=== PATIENT | male | born 1960 | race Caucasian/White ===

== ENCOUNTER 2019-03-03 13:10 | Outpatient (CLI) | payer BC, SELFPAY ==
--- NOTE | 2019-03-03 13:49 | XR_ITS ---
WS: [id number] PARANASAL SINUSES TECHNIQUE: Cisneros, Quintero and lateral views HISTORY: CHRONIC SINUS CONGESTION COMPARISON: None available. Paranasal sinuses are well aerated. No air-fluid levels. No osseous destruction. Visualized portions of the adjacent bones are normal. No deviation of the nasal septum. NOTE: Report was unsigned for reason: Ordering provider was edited. Original Signature date and time was: 03/03/19 1433 [facility] XR/XR sinus min 3V* [id number] IMPRESSION: Normal paranasal sinus films.
== END 2019-03-03 13:11 | disposition home or self-care (01) ==
PROVIDERS: Family Provider Physician Assistant
DX: R09.81 Nasal congestion (principal)
CPT/HCPCS: 70220

== ENCOUNTER 2023-07-30 10:17 | Emergency (ER) | payer SELFPAY ==
[2023-07-30 10:22] VITALS: BP 136/101; PULSE 97; RESP 20; TEMP 36.4; O2SAT 96
--- NOTE | 2023-07-30 10:30 | XR_ITS ---
WS: [id number] Exam: XR chest 1V portable [id number] Date/Time of Exam: 07/30/2023 10:30 AM Reason For Exam: dyspnea/cough Comparison 02/14/2018. The lungs are clear and fully expanded. Cardiomediastinal silhouette is unremarkable for technique. N o pleural effusions. Advanced DJD of both shoulders. XR/XR chest 1V portable [id number] IMPRESSION: 1. No acute cardiopulmonary finding.
--- NOTE | 2023-07-30 10:31 | ECG_ITS ---
[facility] Test Date: 2023-07-30 Pat Name: Lamont Fernando Department: Room: Gender: Male Nursing Assoc: : 1960 Requested By: Quique Lee Order Number: [id number] Esme MD: Parish Coronado M.D. Measurements Intervals [place] Rate: 101 P: 60 UT: 161 QRS: 231 QRSD: 90 T: 91 QT: 352 QTc: 456 Interpretive Statements SINUS TACHYCARDIA POSSIBLE RIGHT ATRIAL ENLARGEMENT [0.25mV P-WAVE] LEFT ATRIAL ENLARGEMENT [-0.15mV P-WAVE IN V1/V2] LEFT POSTERIOR FASCICULAR BLOCK [QRS AXIS > 109, INFERIOR Q] Compared to ECG 02/14/2018 18:33:12 Left posterior fascicular block now present Sinus rhythm no longer present Sinus arrhythmia no longer present Electronically Signed On 07-30-2023 12:32:11 CDT by Parish Coronado M.D. [id number] f
--- NOTE | 2023-07-30 10:38 | ED_ITS ---
HPI - SOB/Dyspnea 2 General: Chief Complaint: Shortness of Breath/Dyspnea Stated Complaint: sob Time Seen by Provider: 07/30/23 10:20 Source: patient Mode of arrival: ambulatory History of Present Illness: HPI Narrative: 62-year-old male who [facility] with complaint of 1 week history of shortness of breath with a nonproductive cough. He denies any hematemesis. He denies any fever sweats or chills he has been coughing more. He has a history of COPD he is not on oxygen he does use Symbicort has not used any albuterol. MD elicited complaint: shortness of breath and cough Pertinent past history: COPD Onset (ago): week(s) (1) Exacerbating factors: exertion and coughing Relieving factors: rest and bronchodilators Known history of: COPD Associated symptoms: Deny abdominal pain, chest congestion, chest pain, cough, diaphoresis, dizziness, extremity pain, fever(s), hemoptysis, lightheadedness, myalgias, nausea, orthopnea, palpitations, paresthesias, polydipsia, polyuria, rash, sense of impending doom, syncope or vomiting Treatment prior to arrival: none Review of Systems 2 Const: Denies: fever(s), chills or diaphoresis Card: Denies: chest pain, palpitations, lightheadedness, syncope or orthopnea Resp: Denies: dyspnea, hemoptysis or chest congestion GI: Denies: abdominal pain, nausea or vomiting : Denies: dysuria, urinary frequency or urinary urgency Musc: Denies: neck pain, back pain or extremity pain Skin/Breast: Denies: rash Neuro: Denies: dizziness Endo: Denies: polyuria or polydipsia PFSH ED 2 PFSH: Medical History (Updated 07/30/23 @ 13:30 by Quique Ferguson DO) COPD (chronic obstructive pulmonary disease) Depression Surgical History (Updated 07/30/23 @ 10:48 by Quique Ferguson DO) H/O spinal fusion Surgery Oct 09 2021 Social History Smoking and tobacco/nicotine status: current every day tobacco/nicotine user Physical Exam 2 Const: GENERAL APPEARANCE: cooperative and comfortable O RIENTATION/CONSCIOUSNESS: Yes awake, Yes oriented to person, Yes oriented to place and Yes oriented to time HENMT: COMMON NORMALS: normocephalic, atraumatic and hearing grossly normal bilaterally HEAD & SCALP: normocephalic and atraumatic Resp: COMMON NORMALS: normal respiratory effort, No retractions and No use of accessory muscles AUSCULTATION: wheezes Cardio: COMMON NORMALS: regular rate, regular rhythm and No murmurs present (Cardio) RATE: regular rate RHYTHM: regular rhythm GI: COMMON NORMALS: Soft to palpation and No hepatosplenomegaly present A USCULTATION: Yes normoactive bowel sounds PALPATION: Yes Soft to palpation, No Tenderness to palpation present (GI), No Guarding due to palpation present (GI) and Yes No hepatosplenomegaly present Extremity: COMMON NORMALS: normal to inspection, capillary refill normal, no clubbing, cyanosis or edema, no calf tenderness and no pedal edema Neuro: SENSORIUM/ORIENTATION: Yes oriented to person, Yes oriented to place and Yes oriented to time Skin: COMMON NORMALS: no rashes or lesions noted GENERAL SKIN EXAM: no rashes or lesions noted Course 2 Vital Signs: Vital signs: Vital Signs Temperature 97.5 F L 07/30/23 10:22 Pulse Rate 101 H 07/30/23 13:48 Respiratory Rate 18 07/30/23 10:45 Blood Pressure 127/98 07/30/23 13:48 Pulse Oximetry 94 07/30/23 13:48 Oxygen Delivery Me thod Room Air 07/30/23 12:03 MDM - SOB/Dyspnea Medical Decision Making EKG and cardiac enzymes negative. Chest x-ray unremarkable suspect he has exacerbation of COPD will treat with doxycycline steroid taper albuterol. Glucose was markedly elevated as well it did respond to insulin. Encourage patient to follow-up with his primary care doctor to discuss his glycemic control. Medical Records I reviewed the patient's medical records. Lab Data I reviewed the patient's lab results. 07/30/23 10:33 07/30/23 10:33 Labs/Radiology: Radiology Impressions Chest X-Ray 07/30/23 10:30 IMPRESSION: 1. No acute cardiopulmonary finding. Laboratory Results WBC 7.68 10^3/uL (3.29-11.43) 07/30/23 10:33 RBC 6.46 10^6/uL (3.85-5.65) H 07/30/23 10:33 Hgb 17.10 g/dL (11.27-16.99) H 07/30/23 10:33 Hct 52.5 % (37-53) 07/30/23 10:33 MCV 81.3 fl (82-101) L 07/30/23 10:33 MCH 26.5 pg (27-33) L 07/30/23 10:33 MCHC 32.6 g/dL (30-55) 07/30/23 10:33 RDW 13.9 % (12.1-15.1) 07/30/23 10:33 Plt Count 285 10^3/cmm (157-399) 07/30/23 10:33 MPV 11.5 fL (7.4-10.4) H 07/30/23 10:33 Neut % (Auto) 80.3 % 07/30/23 10:33 Lymph % (Auto) 10.8 % 07/30/23 10:33 [place] % (Auto) 5.3 % 07/30/23 10:33 Eos % (Auto) 2.3 % 07/30/23 10:33 Baso % (Auto) 1.0 % 07/30/23 10:33 Neut # (Auto) 6.16 10^3/uL (1.8-7.7) 07/30/23 10:33 Lymph # (Auto) 0.8 10^3/uL (0.8-4.8) 07/30/23 10:33 [place] # (Auto) 0.4 10^3/uL (0.2-0.9) 07/30/23 10:33 Eos # (Auto) 0.2 10^3/uL (0.0-0.8) 07/30/23 10:33 Baso # (Auto) 0.1 10^3/uL (0.0-0.1) 07/30/23 10:33 Nucleated RBC % (auto) 0 % 07/30/23 10:33 Nucleated RBCs # 0.0 /100WBC 07/30/23 10:33 Specimen Type Arterial 07/30/23 10:29 Sample Site Radial, left 07/30/23 10:29 ABG pH 7.43 (7.35-7.45) 07/30/23 10:29 ABG pCO2 33.3 mmHg (35-45) L 07/30/23 10:29 ABG pO2 70.7 mmHg (80.0-100.0) L 07/30/23 10:29 ABG PO2/FiO2 Ratio 0 07/30/23 10:29 ABG HCO3 22.0 mmol/L (22-26) 07/30/23 10:29 ABG O2 Saturation 94.9 07/30/23 10:29 ABG Base Excess -1.6 mmol/L (-2.0-2.0) 07/30/23 10:29 Daniele Test Pos 07/30/23 10:29 A-a O2 Gradient 4.8 mmHg (5-10) L 07/30/23 10:29 Hematocrit 46.7 % (42-52) 07/30/23 10: Hgb O2 Saturation 92.4 % (95-100) L 07/30/23 10:29 Carboxyhemoglobin 2.1 %THgb (0.4-20.1) 07/30/23 10:29 Methemoglobin 0.4 % (0.4-1.5) 07/30/23 10:29 Total Hemoglobin 15.2 g/dL (14-18) 07/30/23 10:29 Sodium 133.0 mmol/L (131-143) 07/30/23 10:29 Potassium 3.8 mmol/L (3.5-5.0) 07/30/23 10:29 Glucose 544.0 mg/dL (70-115) H 07/30/23 10:29 Ionized Calcium 1.1 mmol/L (1.1-1.4) 07/30/23 10:29 O2 Delivery Device Room air 07/30/23 10:29 FiO2 21.0 % 07/30/23 10:29 Yolk Spray Drier ID Walci 07/30/23 10:29 Sodium 131 mmol/L (136-145) L 07/30/23 10:33 Potassium 4.1 mmol/L (3.5-5.1) 07/30/23 10:33 Chloride 92 mmol/L (98-107) L 07/30/23 10:33 Carbon Dioxide 23 mmol/L (22-29) 07/30/23 10:33 Anion Gap 20.1 (5-19) H 07/30/23 10:33 BUN 8 mg/dL (8-23) 07/30/23 10:33 Creatinine 0.8 mg/dL (0.7-1.2) 07/30/23 10:33 GFR Calculation 98.3 mL/min (90-130) 07/30/23 10:33 Glucose 572 mg/dL (65-115) H* 07/30/23 10:33 POC Glucose 292 mg/dL (70-110) H 07/30/23 13:00 Calculated Osmolality 297 mOsm/kg (285-295) H 07/30/23 10:33 Calcium 9.3 mg/dL (8.5-10.5) 07/30/23 10:33 Total Bilirubin 0.5 mg/dL (0.15-1.2) 07/30/23 10:33 AST 22 U/L (0-40) 07/30/23 10:33 ALT 30 U/L (0-41) 07/30/23 10:33 Alkaline Phosphatase 152 U/L (40-130) H 07/30/23 10:33 Troponin T Baseline 49 ng/L (0-15) H 07/30/23 10:33 Troponin T 120 Minute 37.60 ng/L (0-15) H 07/30/23 12:14 Delta Troponin T -11.40 ABS# (0-10) L 07/30/23 12:14 Total Protein 7.3 g/dL (6.6-8.7) 07/30/23 10:33 Albumin 4.3 g/dL (3.5-5.2) 07/30/23 10:33 Globulin 3.0 g/dL (1.3-4.6) 07/30/23 10:33 Urine Color Yellow (Yellow) 07/30/23 12:02 Urine Appearance Clear (CLEAR) 07/30/23 12:02 Urine pH 6 (5-7) 07/30/23 12:02 Ur Specific [place] 1.015 (1.005-1.030) 07/30/23 12:02 Urine Protein 3+ (Negative) H 07/30/23 12:02 Urine Glucose (UA) 4+ (Normal) H 07/30/23 12:02 Urine Ketones Negative (Negative) 07/30/23 12:02 Urine Blood 2+ (Negative) H 07/30/23 12:02 Urine Nitrate Negative (Negative) 07/30/23 12:02 Urine Bilirubin Neg (Negative) 07/30/23 12:02 Urine Urobilinogen Neg mg/dL (Negative) 07/30/23 12:02 Ur Leukocyte Esterase Negative (Negative) 07/30/23 12:02 Urine RBC 0-4 /hpf (0-2) H 07/30/23 12:02 Urine WBC 0-4 /hpf (0-5) H 07/30/23 12:02 Ur Squamous Epith Cells Rare /hpf (0-5) 07/30/23 12:02 Amorphous Sediment Not Reportable 07/30/23 12:02 Urine Bacteria Trace /hpf (NONE) 07/30/23 12:02 Serum Ketones Negative (Negative) 07/30/23 10:33 All radiology interpretation(s) finalized by discharge Discharge Plan Discharge Patient Disposition: Home Clinical Impression: Acute exacerbation of chronic obstructive airways disease Condition: Stable Prescriptions: New doxycycline hyclate 100 mg capsule 100 mg PO BID 10 Days Qty: 20 0RF ipratropium-albuterol 0.5 mg-3 mg(2.5 mg base)/3 mL solution for nebulization 3 ml inhalation Q4H PRN (Reason: shortness of breath or wheezing) Qty: 90 0RF Medrol (Enrico) 4 mg tablets,dose pack See Rx Instructions .ROUTE .COMPLEX Qty: 21 0RF Rx Instructions: orally per package directions No Action metformin 500 mg tablet 500 mg PO BID glimepiride 2 mg tablet 2 mg PO QAM tamsulosin 0.4 mg capsule 0.4 mg PO DAILY pantoprazole 40 mg tablet,delayed release (DR/EC) 40 mg PO DAILY gabapentin 300 mg capsule 300 mg PO TID budesonide-formoterol 160-4.5 mcg/actuation HFA aerosol inhaler 2 puff INHALATION BID Trulicity 0.75 mg/0.5 mL pen injector 0.75 mg SUBCUT Q7D Discharge Orders: Discharge ED (Routine); Ordered 07/30/23 Ordered By: Quique Ferguson Other Ambulatory Orders: DME: Nebulizer with Neb Kit (Order) Location: None Selected Ordered By: Quique Ferguson Referrals: Sharath Hernandez [Family Provider] - Discharge Diet: Usual diet Discharge Activity: Limit activity as instructed Patient Instructions: Opioid Safety, Pain Management Activity Restrictions/Additional Instructions: Thank you for choosing [facility] for your healthcare needs today. It is very important that you follow up as instructed or that you return to the Emergency Department should you have concerns or if your condition changes or worsens in any way. You are seen today for shortness of breath. Chest x-ray and evaluation of your heart did not show any acute problems. Your symptoms are caused by an exacerbation of your underlying COPD. Recommend you start doxycycline 1 pill twice a day for 10 days additionally a nebulizer and DuoNebs to use every 4 hours as needed for shortness of breath or wheezing. You can start a steroid pack tomorrow which was also called into the pharmacy for you. It is very important that you follow-up with your doctor within the next 10 to 14 days. You should discuss with your doctor your blood sugar control as your blood sugar was quite elevated when you were in the emergency room today. Coding Level of Care Code ED Dealer Card Room for Viola Mackay
[2023-07-30 10:39] LABS: Basophils # 0.1 10^3/uL (0.0-0.1); Eosinophils # 0.2 10^3/uL (0.0-0.8); Eosinophils % 2.3 %; Hematocrit 52.5 % (37-53); Lymphocytes # 0.8 10^3/uL (0.8-4.8); Lymphocytes % 10.8 %; Mean Corpuscular HGB Conc 32.6 g/dL (30-55); Mean Corpuscular Hemoglobin 26.5 pg (27-33); Mean Corpuscular Volume 81.3 fl (82-101); Mean Platelet Volume 11.5 fL (7.4-10.4); Monocytes # 0.4 10^3/uL (0.2-0.9); Monocytes % 5.3 %; Neutrophils # 6.16 10^3/uL (1.8-7.7); Neutrophils % 80.3 %; Nucleated Red Blood Cells % 0 %; Platelet Count 285 10^3/cmm (157-399); Red Blood Count 6.46 10^6/uL (3.85-5.65); Red Cell Distribution Width 13.9 % (12.1-15.1); White Blood Count 7.68 10^3/uL (3.29-11.43)
[2023-07-30 10:40] LABS: ABG PCO2 33.3 mmHg (35-45); ABG PH Result 7.43 (7.35-7.45); Alveolar-Arterial Oxygen Gradi 4.8 mmHg (5-10); Arterial Blood Gas Hematocrit 46.7 % (42-52); Base Excess ABG -1.6 mmol/L (-2.0-2.0); Blood Gas Allen Test Pos; Blood Gas Operator Identificat WALCI; Blood Gas Sample Site Radial, left; Blood Gas Sample Type Arterial; Carboxyhemoglobin 2.1 %THgb (0.4-20.1); HGB O2 Sat 92.4 % (95-100); Ionized Calcium Level - ABG 1.1 mmol/L (1.1-1.4); Methemoglobin 0.4 % (0.4-1.5); Oxygen Device ROOM AIR; Oxygen Saturation ABG 94.9; PO2 ABG 70.7 mmHg (80.0-100.0); PO2 FiO2 Ratio Arterial Blood 0; Potassium Level - ABG 3.8 mmol/L (3.5-5.0); Total Hemoglobin 15.2 g/dL (14-18)
[2023-07-30 10:45] VITALS: PULSE 103; RESP 18; O2SAT 97
[2023-07-30] MEDS: ipratropium-albuterol 3 mL Neb INHALATION (10:45)
[2023-07-30 10:53] VITALS: PULSE 97
[2023-07-30 10:56] LABS: Alanine Aminotransferase 30 U/L (0-41); Albumin Level 4.3 g/dL (3.5-5.2); Alkaline Phosphatase 152 U/L (40-130); Anion Gap 20.1 (5-19); Aspartate Amino Transferase 22 U/L (0-40); Blood Urea Nitrogen 8 mg/dL (8-23); Calcium 9.3 mg/dL (8.5-10.5); Carbon Dioxide 23 mmol/L (22-29); Chloride 92 mmol/L (98-107); Glomerular Filtration Rate 98.3 mL/min (90-130); Osmolality Calculated 297 mOsm/kg (285-295); Potassium 4.1 mmol/L (3.5-5.1); Sodium 131 mmol/L (136-145); Total Bilirubin 0.5 mg/dL (0.15-1.2); Total Protein 7.3 g/dL (6.6-8.7)
[2023-07-30 10:57] LABS: Troponin(5th) Baseline 49 ng/L (0-15)
[2023-07-30 11:00] LABS: Glucose 572 mg/dL (65-115)
[2023-07-30] MEDS: sodium chloride 0.9% 1,000 ML 999 ML IV (11:19)
[2023-07-30] MEDS: insulin regular-human 100 units/1 mL 10 UNIT IVP (11:20)
[2023-07-30 11:47] LABS: Ketone (Acetest) Serum Negative (Negative)
[2023-07-30 12:03] VITALS: BP 133/95; PULSE 95; O2SAT 97
--- NOTE | 2023-07-30 12:31 | ECG_ITS ---
[facility] Test Date: 2023-07-30 Pat Name: Lamont Fernando Department: Room: Gender: Male Genetic Physician: : 1960 Requested By: Quique Lee Order Number: [id number] Esme MD: Parish Coronado M.D. Measurements Intervals [place] Rate: 96 P: 63 FL: 151 QRS: 202 QRSD: 90 T: 70 QT: 298 QTc: 378 Interpretive Statements SINUS RHYTHM RIGHT ATRIAL ENLARGEMENT [0.3mV P-WAVE] LEFT ATRIAL ENLARGEMENT [-0.15mV P-WAVE IN V1/V2] LEFT POSTERIOR FASCICULAR BLOCK [QRS AXIS > 109, INFERIOR Q] Compared to ECG 07/30/2023 10:25:17 Sinus tachycardia no longer present Electronically Signed On 07-30-2023 13:01:58 CDT by Parish Coronado M.D. [id number]
[2023-07-30 12:52] LABS: Add Urine Microscopic? YES; Bilirubin Urine Neg (Negative); Blood Urine 2+ (Negative); Glucose Urine UA 4+ (Normal); Ketones Urine Negative (Negative); Leukocyte Esterase Urine Negative (Negative); Nitrate Urine Negative (Negative); Protein Urine 3+ (Negative); Specific Gravity, Urine 1.015 (1.005-1.030); Urine Appearance Clear (CLEAR); Urine Color Yellow (Yellow); Urobilinogen Urine Neg (Negative); pH Urine 6 (5-7)
[2023-07-30 12:53] LABS: Bacteria Urine TRACE /hpf; RBC Urine 0-4 /hpf (0-2); Squamous Epithelial Cell Urine RARE /hpf (0-5); WBC Urine 0-4 /hpf (0-5)
[2023-07-30 12:54] LABS: Add Urine Culture? No
[2023-07-30 13:04] LABS: Glucose Point of Care 292 mg/dL (70-110)
[2023-07-30 13:48] VITALS: BP 127/98; PULSE 101; O2SAT 94
== END 2023-07-30 13:49 | disposition home or self-care (01) ==
PROVIDERS: Emergency Provider Family Medicine; Family Provider Physician Assistant
DX: J44.1 Chronic obstructive pulmonary disease with (acute) exacerbation (principal); Z79.84 Long term (current) use of oral hypoglycemic drugs; Z79.85 Long-term (current) use of injectable non-insulin antidiabetic drugs; Z72.0 Tobacco use
CPT/HCPCS: 36415; 36416; 36600; 71045; 80051; 80053; 81001; 82009; 82330; 82805; 82962; 84484; 85025; 93005; 94640; 96361; 96374; 99285; J1815; J7030